=== PATIENT | female | born 1955 | race Two or more races ===

== ENCOUNTER 2024-01-28 15:51 | Inpatient (IN) | payer OTHER ==
[~2024-01-28] VITALS: Ht 162.6 cm; Wt 77.1 kg
[2024-01-28] MEDS ORDERED: GLIPIZIDE ER5 MG PO (16:25)
--- NOTE | 2024-01-28 16:25 | NUR ---
SE RECIBE PTE EN AMBULANCIA LA MISMA DESORIENTADA, HIJA DE LA PTE INDICA QUE ESTABAN EN EL MUSEO DE TR MIENTRAS MELINDA SE DESMAYO Y PERDIO EL CONOCIMIENTO. AL MOMENTO DEL TRIAGE LA PTE REFIERE TENER DOLOR DE SRINIVAS. PTE DESORIENTADA Y CON PROBLEMAS AL PODER EXPRESARSE. SE OBSERVA LADO IZQ DE LA BOCA CON DEBILIDAD. SE LE REALIZA EKG A PTE Y PRESENTA A DR. HARRY. SE UBICA A PTE EN CAM #13 CONECTADA A MONITOR CARDIACO Y OXIMETRIA. FAMILIAR DE LA PTE REFIERE QUE SALE POSITIVO A COVID HACE 5 CARDOZO.
--- NOTE | 2024-01-28 16:52 | NUR ---
SE RECIBE PTE ALERTA Y ORIENTADA X3 SE LE ORIENTA SOBRE [place] MEDICO Y REFIERE ENTENDER. SE LE REALIZA LORRAINE DE MUESTRAS JENNIFER ORDEN MEDICA Y SE LE CANALIZA EN EL BRAZO LUIZ ANGIO #20.
[2024-01-28] MEDS ORDERED: LORazepam 2 MG/ML VIAL IV ONE (17:00)
--- NOTE | 2024-01-28 17:01 | NUR ---
A LAS 4:40 SE TRANSPORTA PACIENTE PARA AREA DE CT SCAN CON PERSONAL DE ESCOLTA. SE INTENTA REALIZAR CT SCAN DE SRINIVAS Y LA MISMA REHUSA QUE NO QUIERE REALIZARSELO Y SE TONAR AGRESIVA. SE CALMA PACIENTE CON AYUDA DE VELASQUEZ. LA MISMA ALERTA Y ORIENTADA X3 SE ORIENTA DE LA IMPORTANCIA DEL ESTUDIO. SE NOTIFICA A DR. MCNEAL
[2024-01-28 17:07] LABS: HEMATOCRIT 40.8 % (36.0-45.00); HEMOGLOBIN 14.3 g/dL (12.0-15.00); MEAN CELL VOLUME 83.7 fL (80.00-100.00); MEAN CORPUSCULAR HEMOGLOBIN 29.3 pg (27.00-32.0); PLATELET COUNT 229 K/uL (150-450); RED BLOOD COUNT 4.88 M/uL (4.00-6.00); RED CELL DISTRIBUTION WIDTH 13.4 % (11.5-14.5)
[2024-01-28] MEDS ORDERED: ASPIRIN 325 MG TABLET PO ONE (17:15)
[2024-01-28] MEDS ORDERED: LORazepam 2 MG/ML VIAL ONE (17:16)
[2024-01-28 17:32] LABS: ALBUMIN 3.7 gm/dL (3.4-5.0); CALCIUM 9.7 mg/dL (8.5-10.1); CREATININE SERUM 1.18 mg/dL (0.55-1.02); GFR 45.28; GLOBULINA 3.2 G/DL (2.4-3.5); POTASSIUM 4.38 mEq/L (3.5-5.1); TOTAL PROTEIN 6.9 gm/dL (6.4-8.2)
[2024-01-28] MEDS ORDERED: INSULIN REGULAR, HUMAN 1,000 UNIT/10 ML UNITS IV ONE (18:30)
[2024-01-28] MEDS ORDERED: HALOPERIDOL LACTATE 5 MG/ML AMPUL IM ONE (18:30)
[2024-01-28] MEDS ORDERED: DIPHENHYDRAMINE HCL 50 MG/ML VIAL 1ML IM ONE (18:30)
[2024-01-28] MEDS ORDERED: DIPHENHYDRAMINE HCL 50 MG/ML VIAL 1ML ONE (18:32)
[2024-01-28] MEDS ORDERED: HALOPERIDOL LACTATE 5 MG/ML AMPUL ONE (18:33)
[2024-01-28] MEDS ORDERED: NALOXONE HCL 1 MG/ML DISP.SYRIN IV ONE (19:15)
[2024-01-28] MEDS ORDERED: MIDAZOLAM HCL/PF 5 MG/ML VIAL IV ONE (19:15)
[2024-01-28] MEDS ORDERED: FLUMAZENIL 1MG/10ML VIAL IV ONE (19:15)
[2024-01-28] MEDS ORDERED: NALOXONE HCL 0.4 MG/ML AMPUL ONE (19:15)
[2024-01-28] MEDS ORDERED: FLUMAZENIL 0.5 MG/5 ML ML IV ONE ×2 (19:16→22:45)
[2024-01-28] MEDS ORDERED: ENALAPRILAT DIHYDRATE 1.25 MG/ML VIAL IV ONE (22:15)
[2024-01-28] MEDS ORDERED: ENALAPRILAT DIHYDRATE 2.5 MG/2 ML VIAL IV ONE (22:15)
[2024-01-28] MEDS ORDERED: NALOXONE HCL 0.4 MG/ML AMPUL IV ONE (22:45)
[2024-01-28] MEDS ORDERED: DILTIAZEM HCL 25 MG/5 ML VIAL IV ONE (23:15)
--- NOTE | 2024-01-28 23:28 | NUR ---
SE UBICA A PTE EN AREA DE CRITICO #1, SE CONECTA MONITOR CARDIACO Y OXIMETRIA DE PULSO. B/P MANUAL: 230/120. SE REALZIA EKG SE PRESENTA A QUIEN EVALUA PTE Y [place] MEDICO.
[2024-01-29] MEDS ORDERED: DILTIAZEM HCL 25 MG/5 ML VIAL IV ONE (00:05)
[2024-01-29] MEDS ORDERED: LABETALOL HCL 100 MG/20 ML ML ONE (00:28)
[2024-01-29] MEDS ORDERED: LABETALOL HCL 20MG/4ML SYRINGE IV STA (00:35)
--- NOTE | 2024-01-29 00:40 | NUR ---
SE RECIBE PACIENTE ACTIVA Y DESORIENTADA X3. PACIENTE SE ENCUENTRA RESTRINGIDA X4. PACIENTE SE ENCUENTRA CANALIZADA EN LA CON ANGIO #18 Y RA CON ANGIO #18. AMBAS VENOPUNCIONES SE ENCUENTRAN PATENTES, LIBRES DE EDEMA. SE ENCUENTRA CON 0.9NSS BAJANDO A 50ML/HR. PACIENTE SE ENCUENTRA CONECTADA A MONITOR CARDIACO Y OXIMETRIA CONTINUA. SE ENCUENTRA CON CANULA NASAL A 3L/MIN. SE MANTIENE EN OBSERVACION POR CAMBIOS SIGNIFICATIVOS.
[2024-01-29 01:58] LABS: URINE APPEARANCE Clear; URINE BILIRRUBIN Negative (NEGATIVE); URINE BLOOD Moderate; URINE COLOR Yellow; URINE KETONE 15 (NEGATIVE); URINE LEUKOCYTE Negative; URINE NITRATE Negative; URINE UROBILINOGEN 0.2 E.U./dl
[2024-01-29 02:02] LABS: URINE BACTERIA 666.4 uL (0.0-1933); URINE CAST 5.34 uL (0.0-1.40); URINE EPITHELIAL CELLS 15.3 uL (0.0-38.8); URINE RBC 103.9 uL (0.0-20.8)
[2024-01-29] MEDS ORDERED: TICAGRELOR 90 MG TABLET PO STA (02:02)
[2024-01-29] MEDS ORDERED: NITROGLYCERIN IN 5 % DEXTROSE 50 MG/250 ML BOTTLE IV ONE (02:08)
[2024-01-29] MEDS ORDERED: NITROGLYCERIN 250 ML IV SCH (02:15)
[2024-01-29 03:08] LABS: URINE GLUCOSE >=1000 MG/DL (NEGATIVE); URINE PROTEIN 300 (NEGATIVE); URINE YEAST MANY /hpf
--- NOTE | 2024-01-29 08:09 | NUR ---
PACIENTE ALERTA Y DESORIENTADA X3 CONECTADA A MONITOR CARDIACO Y OXIMETRIA CONTINUA. PACIENTE CON CANULA NASAL A 3LT/MIN, TOLERANDO LA MISMA. CANALIZADA CON #18 X2 EN RT ARM, AMBOS PATENTE Y LIBRES DE EDEMA Y ERITMEA BAJANDO 0.9NSS A 50ML/HR Y TRIDIL A 3ML/HR. EXTREMIDADES SUPERIORES SE OBSERVAN LIBRES DE EDEMA Y ERITEMA. ABDOMEN NO DISTENDIDO Y NO DOLOR A LA PALPACION. PACIENTE CON BELLO COLOCADO, ORINA SE OBSERVA DE COLOR SATURNINO. EXTREMIDADES INFERIORES SE OBSERVAN LIBRES DE EDEMA Y ERITEMA. PACIENTE RESTRINGIDA X4, SE REALIZA RE ESTIMADO DE RESTRICCIONES Y SE DOCUMENTA EN SISTEMA. PACIENTE SE MANTIENE EN CAMA A NIVEL DE PISO JUNTO CON BARRANDAS ELEVADAS. PENDIENTE A CONSULTA CON MEDICINA INTERNA.
[2024-01-29] MEDS ORDERED: FUROsemide 20 MG/2 ML VIAL IV SCH (12:19)
[2024-01-29] MEDS ORDERED: DEXTROSE 50 % IN WATER 0.5 G/ML DISP.SYRIN IV PRN (12:30)
[2024-01-29] MEDS ORDERED: ENALAPRILAT DIHYDRATE 1.25 MG/ML VIAL IV PRN (12:30)
[2024-01-29] MEDS ORDERED: INSULIN LISPRO 1,000 UNIT/10 ML UNITS SUBCUTANEO PRN (12:30)
[2024-01-29] MEDS ORDERED: LORazepam 2 MG/ML VIAL IV SCH (12:30)
[2024-01-29 13:30] LABS: ABG PH 7.422 (7.35-7.45); ABG PO2 80.7 mmHg (80-100); ABG pCO2 38.1 mmHg (35-45); BASE EXCESS 0.1 mmol/l; BICARBONATE 24.2 mmol/l (23-25); SaO2 96.1 %; Tco2 25.4 mmol/l
[2024-01-29] MEDS ORDERED: ASPIRIN 81 MG TABLET.EC PO NR (13:53)
[2024-01-29] MEDS ORDERED: LOSARTAN/HYDROCHLOROTHIAZIDE 1 UDTAB TABLET PO NR (13:53)
[2024-01-29] MEDS ORDERED: CYANOCOBALAMIN (VITAMIN B-12) 1,000 MCG TABLET PO SCH (13:53)
[2024-01-29 13:59] LABS: allen test SATISFACTORY; o2 21 %; puncture site RADIAL RIGHT
[2024-01-29 14:13] VITALS: BP 170/71; O2SAT 100
[2024-01-29 14:18] VITALS: BP 170/70
[2024-01-29 15:10] VITALS: BP 149/79; O2SAT 100
[2024-01-29] MEDS ORDERED: LORazepam 2 MG/ML VIAL IV PRN (16:30)
[2024-01-29] MEDS ORDERED: QUETIAPINE FUMARATE 25 MG TABLET PO SCH (17:00)
[2024-01-29] MEDS ORDERED: FAMOtidine 20 MG TABLET PO SCH (21:00)
[2024-01-29] MEDS ORDERED: LORATADINE 10 MG TABLET PO SCH (21:00)
[2024-01-29 21:03] VITALS: BP 170/83
[2024-01-30 01:15] VITALS: BP 162/80
[2024-01-30 06:57] VITALS: O2SAT 98
[2024-01-30] MEDS ORDERED: ATORVASTATIN CALCIUM 20 MG TABLET PO SCH (09:00)
[2024-01-30] MEDS ORDERED: CYANOCOBALAMIN (VITAMIN B-12) 1,000 MCG TABLET PO SCH (09:00)
[2024-01-30] MEDS ORDERED: ASPIRIN 81 MG TABLET.EC PO SCH (09:00)
[2024-01-30] MEDS ORDERED: LOSARTAN/HYDROCHLOROTHIAZIDE 1 UDTAB TABLET PO SCH (09:00)
[2024-01-30] MEDS ORDERED: ENOXAPARIN SODIUM 40 MG/0.4 ML SYRINGE SUBCUTANEO SCH (09:00)
[2024-01-30 09:27] VITALS: BP 127/71; O2SAT 96
[2024-01-30] MEDS ORDERED: ACETAMINOPHEN 500 MG GEL..CAP PO PRN (15:15)
[2024-01-30] MEDS ORDERED: ACETAMINOPHEN 500 MG GEL..CAP PO NR (15:30)
[2024-01-30] MEDS ORDERED: PHENOL 177 ML BOTTLE MM SCH (17:00)
[2024-01-30 18:02] VITALS: BP 147/70; O2SAT 97
[2024-01-30 22:35] VITALS: O2SAT 97
[2024-01-30 23:32] VITALS: O2SAT 98
[2024-01-31 02:00] VITALS: BP 122/66; O2SAT 96
[2024-01-31 05:13] VITALS: O2SAT 98
[2024-01-31 08:49] VITALS: BP 150/71
[2024-01-31 09:37] VITALS: O2SAT 98
[2024-01-31 13:22] VITALS: O2SAT 96
== END 2024-01-31 16:40 | disposition home or self-care (01) | DRG 312 ==
LOC: ER 15:51 → MEDJ 01-29 12:29
PROVIDERS: Emergency Medicine; ADMIT Internal Medicine; ATTEND Internal Medicine
PROC: B020ZZZ Computerized Tomography (CT Scan) of Brain (ICD-10-PCS; 2024-01-29)
PROC: BW24ZZZ Computerized Tomography (CT Scan) of Chest and Abdomen (ICD-10-PCS; 2024-01-29)
PROC: B24BYZZ Ultrasonography of Heart with Aorta using Other Contrast (ICD-10-PCS; 2024-01-29)
PROC: 4A12X4Z Monitoring of Cardiac Electrical Activity, External Approach (ICD-10-PCS; principal; 2024-01-30)
DX: R55 Syncope and collapse (principal); I10 Essential (primary) hypertension; E66.9 Obesity, unspecified